=== PATIENT | male | born 1985 | race Two or more races ===

== ENCOUNTER 2022-01-07 11:10 | Emergency (ER) | payer SELFPAY ==
[~2022-01-07] VITALS: Ht 170.2 cm; Wt 82.0 kg
[2022-01-07] MEDS ORDERED: IBUPROFEN 600MG TABLET PO STA (15:17)
[2022-01-07] MEDS ORDERED: ACETAMINOPHEN 325MG TABLET PO STA (15:17)
[2022-01-07 15:53] VITALS: BP 148/89
[2022-01-07 15:57] LABS: HEMATOCRIT. 45.5 % (42.0-52.0); MEAN CORPUSCULAR HEMOGLOBIN 31.7 pg (28.0-32.0); MEAN CORPUSCULAR VOLUME 96.1 fL (80.0-94.0); MEAN PLATELET VOLUME 8.9 fl (7.4-10.4); PLATELET 214 x1000/uL (130-400); RED BLOOD CELL COUNT 4.74 mill/uL (4.7-6.1)
[2022-01-07 16:05] LABS: CHLORIDE 109 mEq/L (98-107)
[2022-01-07 16:50] LABS: PLATELET ESTIMATE NORMAL
== END 2022-01-07 16:54 | disposition left against medical advice (07) ==
LOC: ER 12:06
DX: K52.9 Noninfective gastroenteritis and colitis, unspecified (principal)
CPT/HCPCS: 36415; 80053; 85025; 99283